=== PATIENT | female | born 1990 | race African-American/Black ===

== ENCOUNTER 2019-08-28 23:23 | Inpatient (IN) ==
[2019-08-28] MEDS ORDERED: ONDANSETRON 4 MG/2 ML VIAL IV PRN (23:37)
[2019-08-29 00:11] LABS: Basophils % 0.2 % (0.0-0.8); Eosinophils % 0.2 % (0.00-10.9); Hematocrit 33.5 VOL% (35.7-47.0); Hemoglobin 10.2 GM/DL (12.0-16.0); Immature Granulocytes % 2.2 %; Lymphocytes # 1.9 10*3/uL (1.4-4.0); Lymphocytes % 20.1 % (21.3-54.2); Mean Corpuscular HGB Conc 30.4 GM/DL (32-36); Mean Corpuscular Volume 80.9 FL (87-102); Monocytes % 7.8 % (1.7-12.7); Neutrophils % 69.5 % (38.7-73.9); Platelet Count 253 T/CUMM (130-400); Red Blood Count 4.14 MC/CUMM (3.8-5.5); Red Cell Distribution Width 16.7 % (9.3-17.3); White Blood Count 9.2 T/CUMM (4-12)
[2019-08-29 00:33] LABS: Alanine Aminotransferase 11 U/L (13-56); Albumin 2.5 G/DL (3.4-5.0); Alkaline Phosphatase 158 U/L (45-117); Aspartate Amino Transferase 12 U/L (0-37); Bilirubin,Total < 0.39 MG/DL (0.2-1.0); Blood Urea Nitrogen 9 MG/DL (7-18); Calcium 8.9 MG/DL (8.5-10.1); Estimated Glom Filtration Rate 188 ML/MIN; Glucose 91 MG/DL (74-106); Osmolality,Calculated 268.1 MOS/KG (273-304); Total Protein 7.7 G/DL (6.4-8.3)
[2019-08-29] MEDS ORDERED: LACTATED RINGERS 1,000 ML IV ONE (09:00)
[2019-08-29] MEDS ORDERED: FAMOTIDINE 20 MG/2 ML VIAL IV ONE (09:00)
[2019-08-29] MEDS ORDERED: CITRIC ACID/SODIUM CITRATE 30 ML UDCUP PO ONE (09:00)
[2019-08-29] MEDS ORDERED: OXYTOCIN/LR 20 UNIT/1,000 ML BAG IV SCH (09:00)
[2019-08-29] MEDS ORDERED: PROMETHAZINE 25 MG/1 ML VIAL IM ONE (09:01)
[2019-08-29] MEDS ORDERED: NALOXONE 0.4 MG/ML VIAL IV PRN (09:01)
[2019-08-29] MEDS ORDERED: diphenhydrAMINE 50 MG/1 ML VIAL IV PRN ×2 (09:01)
[2019-08-29] MEDS ORDERED: hydrOXYzine HCL 25 MG/1 ML VIAL IM PRN (09:01)
[2019-08-29] MEDS ORDERED: fentaNYL 2 MCG/ROPIV 0.2% EPID 100 ML EPIDURAL SCH (09:30)
[2019-08-29] MEDS: LACTATED RINGERS 1,000 ML IV SCH ×2 (10:18→12:33)
[2019-08-29 12:01] LABS: Apearance,Urine CLEAR (Clear); Bacteria,Urine Occasional /HPF (Few); Bilirubin,Urine Negative (Negative); Blood, Urine Small mg/dL (Negative); Glucose,Urine (UA) Negative (Negative); Ketones,Urine Negative (Negative); Mucus,Urine Occasional /LPF (Occasional); Nitrite,Urine Negative (Negative); Protein,Urine Negative; RBC,Urine 6 /HPF (0-4); Squamous Epithelial Cell,Urine Occasional /HPF (0-10); Urine Color Yellow (Yellow); Urine Specific Gravity 1.012 (1.001-1.035); Urine Urobilinogen < 2.0 EU/DL (0.2-1.0); WBC,Urine 22 /HPF (0-6)
[2019-08-29] MEDS: ePHEDrine 50 MG/ML AMP IV PRN ×3 (12:15→12:28)
[2019-08-29] MEDS ORDERED: miSOPROStoL 200 MCG TABLET ONE (15:02)
[2019-08-29] MEDS ORDERED: METHYLERGONOVINE 0.2 MG/1 ML AMP ONE (15:03)
[2019-08-29] MEDS ORDERED: CARBOPROST TROMETHAMINE 250 MCG/ML AMP IM ONE (15:03)
[2019-08-29 17:55] LABS: Cord Venous Blood HCO3 22.7 MMOL/L; Cord Venous Blood PCO2 37.4 MMHG; Cord Venous Blood PO2 40.6
[2019-08-29] MEDS ORDERED: ACETAMINOPHEN 325 MG TABLET PO PRN (20:32)
[2019-08-29] MEDS ORDERED: BENZOCAINE 20%/MENTHOL 0.5% SPRAY 56 GM CAN TOP PRN (20:32)
[2019-08-29] MEDS ORDERED: OXYTOCIN/LR 20 UNIT/1,000 ML BAG IV ONE (20:32)
[2019-08-29] MEDS ORDERED: HYDROCORTISONE 2.5% RECTAL CREAM 30 GM TUBE TOP PRN (20:32)
[2019-08-29] MEDS ORDERED: WITCH HAZEL PADS 100/JAR TOP PRN (20:32)
[2019-08-29] MEDS ORDERED: MEASLES/MUMPS/RUBELLA VACCINE 0.5 ML VIAL SUBCUT ONE (20:32)
[2019-08-29] MEDS ORDERED: DIPH/TET/ACEL PERT BOOSTER VACCINE 0.5 ML VIAL IM ONE (20:32)
[2019-08-29] MEDS ORDERED: oxyCODONE/ACETAMINOPHEN 5-325 MG TABLET PO PRN (20:32)
[2019-08-29] MEDS ORDERED: BISACODYL 10 MG SUPP RECTAL PRN (20:32)
[2019-08-29] MEDS ORDERED: RHO(D) IMMUNE GLOBULIN 300 MCG SYRINGE IM ONE (20:32)
[2019-08-29] MEDS ORDERED: LANOLIN 50% CREAM 0.3 OZ TUBE TOP PRN (20:32)
[2019-08-29] MEDS: IBUPROFEN 800 MG TABLET PO PRN (20:43)
[2019-08-29] MEDS: DOCUSATE SODIUM 100 MG CAPSULE PO SCH (21:26)
[2019-08-29] MEDS: oxyCODONE/ACETAMINOPHEN 5-325 MG TABLET PO PRN (22:08)
[2019-08-30] MEDS: oxyCODONE/ACETAMINOPHEN 5-325 MG TABLET PO PRN ×2 (06:26→18:15)
[2019-08-30 08:20] LABS: Basophils % 0.3 % (0.0-0.8); Eosinophils % 0.3 % (0.00-10.9); Hematocrit 30.6 VOL% (35.7-47.0); Hemoglobin 9.1 GM/DL (12.0-16.0); Immature Granulocytes % 1.6 %; Immature Granulocytes Absolute 0.16 #; Lymphocytes # 1.7 10*3/uL (1.4-4.0); Lymphocytes % 17.1 % (21.3-54.2); Mean Corpuscular HGB Conc 29.7 GM/DL (32-36); Mean Corpuscular Volume 82.3 FL (87-102); Mean Platelet Volume 11.2 FL (9.6-12.0); Neutrophils % 74.7 % (38.7-73.9); Platelet Count 197 T/CUMM (130-400); Red Blood Count 3.72 MC/CUMM (3.8-5.5); Red Cell Distribution Width 16.9 % (9.3-17.3); White Blood Count 10.2 T/CUMM (4-12)
[2019-08-30] MEDS: FERROUS SULFATE 325 MG TABLET PO SCH (08:54)
[2019-08-30] MEDS: DOCUSATE SODIUM 100 MG CAPSULE PO SCH ×2 (08:54→19:26)
[2019-08-30] MEDS: IBUPROFEN 800 MG TABLET PO PRN (19:26)
[2019-08-31 07:12] VITALS: BP 114/52
[2019-08-31] MEDS: DOCUSATE SODIUM 100 MG CAPSULE PO SCH (09:29)
[2019-08-31] MEDS: FERROUS SULFATE 325 MG TABLET PO SCH (09:29)
== END 2019-08-31 12:05 | disposition home or self-care (01) | DRG 560 ==
LOC: N.LD 23:23 → N.OB 08-29 20:55
PROVIDERS: ADMIT Obstetrics & Gynecology; ATTEND Obstetrics & Gynecology

== ENCOUNTER 2020-11-01 02:42 | Inpatient (IN) ==
[2020-11-01] MEDS ORDERED: ONDANSETRON 4 MG/2 ML VIAL IV PRN (03:09)
[2020-11-01] MEDS ORDERED: LACTATED RINGERS 1,000 ML IV ONE ×2 (03:09→06:12)
[2020-11-01] MEDS ORDERED: AMPICILLIN INJ 2,000 MG in SODIUM CHLORIDE 0.9% 100 ML IV ONE (03:13)
[2020-11-01] MEDS ORDERED: OXYTOCIN/LR 30 UNIT/1,000 ML BAG IV PRN (04:00)
[2020-11-01] MEDS: LACTATED RINGERS 1,000 ML IV SCH ×2 (04:05→12:42)
[2020-11-01] MEDS ORDERED: BUTORPHANOL 1 MG/ML VIAL ONE (04:22)
[2020-11-01] MEDS ORDERED: BUTORPHANOL 1 MG/ML VIAL IV PRN (04:28)
[2020-11-01 04:41] LABS: Basophils % 0.4 % (0.0-0.8); Eosinophils % 0.4 % (0.00-10.9); Hematocrit 31.6 VOL% (35.7-47.0); Immature Granulocytes % 2.5 %; Immature Granulocytes Absolute 0.21 #; Lymphocytes # 1.4 10*3/uL (1.4-4.0); Lymphocytes % 16.6 % (21.3-54.2); Mean Corpuscular HGB Conc 31.6 GM/DL (32-36); Mean Corpuscular Volume 84.7 FL (87-102); Mean Platelet Volume 11.3 FL (9.6-12.0); Monocytes % 6.6 % (1.7-12.7); Neutrophils % 73.5 % (38.7-73.9); Platelet Count 221 T/CUMM (130-400); Red Blood Count 3.73 MC/CUMM (3.8-5.5); Red Cell Distribution Width 15.4 % (9.3-17.3); White Blood Count 8.4 T/CUMM (4-12)
[2020-11-01 04:55] LABS: Alanine Aminotransferase 11 U/L (13-56); Albumin 2.4 G/DL (3.4-5.0); Alkaline Phosphatase 123 U/L (45-117); Aspartate Amino Transferase 10 U/L (0-37); Bilirubin,Total < 0.39 MG/DL (0.20-1.00); Blood Urea Nitrogen 6 MG/DL (7-18); Calcium 8.4 MG/DL (8.5-10.1); Carbon Dioxide 21 MMOL/L (21-32); Estimated Glom Filtration Rate 166 ML/MIN; Glucose 92 MG/DL (74-106); Osmolality,Calculated 276.4 MOS/KG (273-304); Potassium 3.6 MMOL/L (3.5-5.1); Sodium 140 MMOL/L (136-145)
[2020-11-01] MEDS ORDERED: diphenhydrAMINE 50 MG/1 ML VIAL IV PRN ×2 (06:12)
[2020-11-01] MEDS ORDERED: ePHEDrine 50 MG/ML VIAL IV PRN (06:12)
[2020-11-01] MEDS ORDERED: LACTATED RINGERS 500 ML IV ONE (06:12)
[2020-11-01] MEDS ORDERED: NALOXONE 0.4 MG/ML VIAL IV PRN (06:12)
[2020-11-01] MEDS ORDERED: PROMETHAZINE 25 MG/1 ML VIAL IM PRN (06:12)
[2020-11-01] MEDS ORDERED: hydrOXYzine HCL 25 MG/1 ML VIAL IM PRN (06:12)
[2020-11-01] MEDS ORDERED: FAMOTIDINE 20 MG/2 ML VIAL IV ONE (06:14)
[2020-11-01] MEDS ORDERED: CITRIC ACID/SODIUM CITRATE 30 ML UDCUP PO ONE (06:14)
[2020-11-01] MEDS ORDERED: LACTATED RINGERS 1,000 ML IV SCH (06:30)
[2020-11-01] MEDS ORDERED: fentaNYL 2 MCG/ROPIV 0.2% EPID 100 ML EPIDURAL SCH (06:30)
[2020-11-01] MEDS: AMPICILLIN INJ 1,000 MG in SODIUM CHLORIDE 0.9% 100 ML IV SCH ×2 (07:30→11:30)
[2020-11-01 08:43] LABS: Bacteria,Urine Occasional /HPF (Few); Bilirubin,Urine Negative (Negative); Blood, Urine Negative (Negative); Glucose,Urine (UA) Negative (Negative); Ketones,Urine Negative (Negative); Mucus,Urine Few /LPF (Occasional); Nitrite,Urine Negative (Negative); Protein,Urine Negative; RBC,Urine <1 /HPF (0-4); Squamous Epithelial Cell,Urine Occasional /HPF (0-10); Urine Appearance CLEAR (Clear); Urine Color Yellow (Yellow); Urine Specific Gravity 1.017 (1.001-1.035); Urine Urobilinogen < 2.0 EU/DL (0.2-1.0)
[2020-11-01] MEDS ORDERED: OXYTOCIN/LR 20 UNIT/1,000 ML BAG IV SCH (09:00)
[2020-11-01] MEDS ORDERED: miSOPROStoL 200 MCG TABLET ONE ×2 (13:46→13:47)
[2020-11-01] MEDS ORDERED: TRANEXAMIC ACID 1,000 MG/10 ML VIAL ONE ×2 (13:46→13:47)
[2020-11-01] MEDS ORDERED: METHYLERGONOVINE 0.2 MG/1 ML AMP ONE (13:47)
[2020-11-01 14:19] LABS: Cord Venous Blood HCO3 23.6 MMOL/L; Cord Venous Blood PCO2 44.4 MMHG; Cord Venous Blood PO2 28.9 MMHG
[2020-11-01] MEDS ORDERED: MEASLES/MUMPS/RUBELLA VACCINE 0.5 ML VIAL SUBCUT ONE (15:50)
[2020-11-01] MEDS ORDERED: BENZOCAINE 20%/MENTHOL 0.5% SPRAY 56 GM CAN TOP PRN (15:50)
[2020-11-01] MEDS ORDERED: HYDROCORTISONE 2.5% RECTAL CREAM 30 GM TUBE TOP PRN (15:50)
[2020-11-01] MEDS ORDERED: OXYTOCIN/LR 20 UNIT/1,000 ML BAG IV ONE (15:50)
[2020-11-01] MEDS ORDERED: oxyCODONE/ACETAMINOPHEN 5-325 MG TABLET PO PRN (15:50)
[2020-11-01] MEDS ORDERED: LANOLIN 50% CREAM 0.3 OZ TUBE TOP PRN (15:50)
[2020-11-01] MEDS ORDERED: DIPH/TET/ACEL PERT BOOSTER VACCINE 0.5 ML VIAL IM ONE (15:50)
[2020-11-01] MEDS ORDERED: BISACODYL 10 MG SUPP RECTAL PRN (15:50)
[2020-11-01] MEDS ORDERED: WITCH HAZEL PADS 100/JAR TOP PRN (15:50)
[2020-11-01] MEDS ORDERED: ACETAMINOPHEN 325 MG TABLET PO PRN (15:50)
[2020-11-01] MEDS ORDERED: RHO(D) IMMUNE GLOBULIN 300 MCG SYRINGE IM ONE (15:50)
[2020-11-01] MEDS: IBUPROFEN 800 MG TABLET PO PRN (18:02)
[2020-11-01] MEDS: oxyCODONE/ACETAMINOPHEN 5-325 MG TABLET PO PRN (19:39)
[2020-11-01] MEDS: DOCUSATE SODIUM 100 MG CAPSULE PO SCH (20:53)
[2020-11-02 05:44] LABS: Basophils % 0.4 % (0.0-0.8); Eosinophils # 0.1 10*3/uL (0.0-0.87); Eosinophils % 0.5 % (0.00-10.9); Hematocrit 29.8 VOL% (35.7-47.0); Hemoglobin 9.2 GM/DL (12.0-16.0); Immature Granulocytes % 1.2 %; Immature Granulocytes Absolute 0.12 #; Lymphocytes # 1.8 10*3/uL (1.4-4.0); Lymphocytes % 18.4 % (21.3-54.2); Mean Corpuscular HGB Conc 30.9 GM/DL (32-36); Mean Corpuscular Volume 85.6 FL (87-102); Mean Platelet Volume 11.1 FL (9.6-12.0); Monocytes % 5.7 % (1.7-12.7); Neutrophils % 73.8 % (38.7-73.9); Platelet Count 173 T/CUMM (130-400); Red Blood Count 3.48 MC/CUMM (3.8-5.5); Red Cell Distribution Width 15.4 % (9.3-17.3)
[2020-11-02] MEDS: IBUPROFEN 800 MG TABLET PO PRN ×2 (07:47→19:40)
[2020-11-02] MEDS: DOCUSATE SODIUM 100 MG CAPSULE PO SCH ×4 (07:47→22:35)
[2020-11-02] MEDS: oxyCODONE/ACETAMINOPHEN 5-325 MG TABLET PO PRN (07:47)
[2020-11-03] MEDS: DOCUSATE SODIUM 100 MG CAPSULE PO SCH (07:35)
[2020-11-03 08:40] VITALS: BP 118/50
[2020-11-03] MEDS ORDERED: FERROUS SULFATE 325 MG TABLET PO SCH (09:00)
== END 2020-11-03 13:10 | disposition home or self-care (01) | DRG 560 ==
LOC: N.LDOUT 02:42 → N.LD 02:47 → N.OB 19:18
PROVIDERS: ADMIT Obstetrics & Gynecology; ATTEND Obstetrics & Gynecology

== ENCOUNTER 2022-06-02 00:05 | Inpatient (IN) ==
[2022-06-02] MEDS: LACTATED RINGERS 1,000 ML IV SCH ×2 (00:52→16:21)
[2022-06-02] MEDS ORDERED: miSOPROStoL 200 MCG TABLET RECTAL PRN (01:02)
[2022-06-02] MEDS ORDERED: METHYLERGONOVINE 0.2 MG/1 ML AMP IM PRN (01:02)
[2022-06-02] MEDS ORDERED: OXYTOCIN/LR 20 UNIT/1,000 ML BAG IV ONE ×2 (01:02→05:30)
[2022-06-02] MEDS ORDERED: TRANEXAMIC ACID 1,000 MG in SODIUM CHLORIDE 0.9% 100 ML IV PRN (01:02)
[2022-06-02] MEDS ORDERED: BUTORPHANOL 2 MG/ML VIAL IV PRN (01:02)
[2022-06-02] MEDS ORDERED: ONDANSETRON 4 MG/2 ML VIAL IV PRN ×2 (01:02→05:30)
[2022-06-02] MEDS ORDERED: CARBOPROST TROMETHAMINE 250 MCG/ML AMP IM PRN (01:02)
[2022-06-02 01:49] LABS: Basophils % 0.3 % (0.0-0.8); Eosinophils % 0.3 % (0.00-10.9); Hematocrit 32.9 VOL% (35.7-47.0); Hemoglobin 10.6 GM/DL (12.0-16.0); Immature Granulocytes % 1.4 %; Immature Granulocytes Absolute 0.11 #; Lymphocytes # 1.7 10*3/uL (1.4-4.0); Lymphocytes % 21.2 % (21.3-54.2); Mean Corpuscular HGB Conc 32.2 GM/DL (32-36); Mean Corpuscular Volume 87.7 FL (87-102); Monocytes # 0.5 10*3/uL (0.11-0.8); Monocytes % 6.2 % (1.7-12.7); Neutrophils % 70.6 % (38.7-73.9); Platelet Count 201 T/CUMM (130-400); Red Blood Count 3.75 MC/CUMM (3.8-5.5); Red Cell Distribution Width 15.1 % (9.3-17.3); White Blood Count 7.93 T/CUMM (4-12)
[2022-06-02 02:08] LABS: Alanine Aminotransferase 9 U/L (13-56); Albumin 2.5 G/DL (3.4-5.0); Alkaline Phosphatase 139 U/L (45-117); Aspartate Amino Transferase 9 U/L (0-37); Bilirubin,Total < 0.39 MG/DL (0.20-1.00); Blood Urea Nitrogen 5 MG/DL (7-18); Calcium 8.2 MG/DL (8.5-10.1); Carbon Dioxide 21 MMOL/L (21-32); Chloride 110 MMOL/L (98-107); Glucose 81 MG/DL (74-106); Osmolality,Calculated 274.4 MOS/KG (273-304); Potassium 3.3 MMOL/L (3.5-5.1); Sodium 140 MMOL/L (136-145)
[2022-06-02] MEDS ORDERED: CITRIC ACID/SODIUM CITRATE 30 ML UDCUP PO ONE (03:23)
[2022-06-02] MEDS ORDERED: FAMOTIDINE 20 MG/2 ML VIAL IV ONE (03:23)
[2022-06-02] MEDS ORDERED: LACTATED RINGERS 1,000 ML IV ONE (03:23)
[2022-06-02] MEDS ORDERED: ceFAZolin 2,000 MG/50 ML DUPLEX IV ONE (03:25)
[2022-06-02] MEDS ORDERED: LIDOCAINE 1% 20 ML VIAL IM PRN (03:44)
[2022-06-02] MEDS ORDERED: buprenorphine HCL 0.3 MG/ML VIAL ONE (04:37)
[2022-06-02] MEDS ORDERED: fentaNYL 100 MCG/2 ML VIAL ONE (04:52)
[2022-06-02] MEDS ORDERED: MIDAZOLAM 2 MG/2 ML VIAL ONE (04:52)
[2022-06-02] MEDS ORDERED: PHENYLEPHRINE 1 MG/10 ML SYRINGE IV ONE (05:04)
[2022-06-02 05:11] LABS: Bacteria,Urine Occasional /HPF (Few); Mucus,Urine Occasional /LPF (Occasional); RBC,Urine <1 /HPF (0-4); Squamous Epithelial Cell,Urine Occasional /HPF (0-10)
[2022-06-02] MEDS ORDERED: SUCCINYLCHOLINE 200 MG/10 ML VIAL ONE (05:14)
[2022-06-02] MEDS ORDERED: propofoL 200 MG/20 ML VIAL IV ONE ×2 (05:14→05:26)
[2022-06-02] MEDS ORDERED: SEVOFLURANE 1 UNIT/15 MINUTE INH ONE (05:14)
[2022-06-02 05:15] LABS: Cord Venous Blood HCO3 20.9 MMOL/L; Cord Venous Blood PO2 38.4
[2022-06-02 05:17] LABS: Glucose,Urine (UA) Negative (Negative); Ketones,Urine Negative (Negative); Protein,Urine Negative (Negative); Urine Appearance Clear (Clear); Urine Color Yellow (Yellow)
[2022-06-02 05:18] LABS: Bilirubin,Urine Negative (Negative); Blood, Urine Negative (Negative); Nitrite,Urine Negative (Negative)
[2022-06-02] MEDS ORDERED: LACTATED RINGERS 1,000 ML IV SCH (05:30)
[2022-06-02] MEDS ORDERED: MAGNESIUM HYDROXIDE SUSP 30 ML UDCUP PO PRN (05:30)
[2022-06-02] MEDS ORDERED: ACETAMINOPHEN 325 MG TABLET PO PRN (05:30)
[2022-06-02] MEDS ORDERED: RHO(D) IMMUNE GLOBULIN 300 MCG SYRINGE IM ONE (05:30)
[2022-06-02] MEDS ORDERED: KETOROLAC 30 MG/1 ML VIAL ONE (05:44)
[2022-06-02] MEDS ORDERED: HYDROmorphone 1 MG/1 ML SYRINGE IV PRN (07:10)
[2022-06-02] MEDS: MULTIVITAMIN (PRENATAL) TABLET PO SCH (10:08)
[2022-06-02] MEDS: DOCUSATE SODIUM 100 MG CAPSULE PO SCH ×2 (10:09→20:21)
[2022-06-02] MEDS: ACETAMINOPHEN 500 MG TABLET PO SCH ×2 (10:10→19:07)
[2022-06-02] MEDS: MEPERIDINE 50 MG/1 ML VIAL IV PRN ×3 (10:11→19:27)
[2022-06-02] MEDS ORDERED: ENOXAPARIN 40 MG/0.4 ML SYRINGE SUBCUT SCH (21:00)
[2022-06-03 04:59] LABS: Basophils % 0.3 % (0.0-0.8); Eosinophils % 0.1 % (0.00-10.9); Hematocrit 25.3 VOL% (35.7-47.0); Hemoglobin 8.2 GM/DL (12.0-16.0); Immature Granulocytes % 0.9 %; Immature Granulocytes Absolute 0.08 #; Lymphocytes # 1.3 10*3/uL (1.4-4.0); Lymphocytes % 14.2 % (21.3-54.2); Mean Corpuscular HGB Conc 32.4 GM/DL (32-36); Mean Corpuscular Volume 86.9 FL (87-102); Mean Platelet Volume 11.6 FL (9.6-12.0); Monocytes # 0.5 10*3/uL (0.11-0.8); Monocytes % 5.8 % (1.7-12.7); Neutrophils % 78.7 % (38.7-73.9); Platelet Count 174 T/CUMM (130-400); Red Blood Count 2.91 MC/CUMM (3.8-5.5); Red Cell Distribution Width 15.3 % (9.3-17.3); White Blood Count 9.21 T/CUMM (4-12)
[2022-06-03] MEDS: SIMETHICONE CHEW 80 MG TABLET PO PRN (06:46)
[2022-06-03] MEDS: METOCLOPRAMIDE 10 MG TABLET PO PRN ×2 (10:41→20:17)
[2022-06-03] MEDS: FERROUS SULFATE 325 MG TABLET PO SCH ×2 (10:41→20:17)
[2022-06-03] MEDS: MULTIVITAMIN (PRENATAL) TABLET PO SCH (10:41)
[2022-06-03] MEDS: DOCUSATE SODIUM 100 MG CAPSULE PO SCH ×2 (10:41→20:17)
[2022-06-03] MEDS: IBUPROFEN 800 MG TABLET PO PRN ×2 (11:32→23:36)
[2022-06-04] MEDS: SIMETHICONE CHEW 80 MG TABLET PO PRN (03:24)
[2022-06-04 07:21] VITALS: BP 98/52
[2022-06-04] MEDS: MULTIVITAMIN (PRENATAL) TABLET PO SCH (08:32)
[2022-06-04] MEDS: DOCUSATE SODIUM 100 MG CAPSULE PO SCH (08:33)
[2022-06-04] MEDS: FERROUS SULFATE 325 MG TABLET PO SCH (08:33)
== END 2022-06-04 11:40 | disposition home or self-care (01) | DRG 540 ==
LOC: N.LDOUT 00:05 → N.LD 00:08 → N.OB 08:15
PROVIDERS: ADMIT Obstetrics & Gynecology; ATTEND Obstetrics & Gynecology
PROC: LDCSECT (ICD-10-PCS; 2022-06-02 04:15)